=== PATIENT | female | born 1975 | race Two or more races ===

== ENCOUNTER 2024-08-07 14:18 | Inpatient (IN) | payer MEDICAID ==
[~2024-08-07] VITALS: Ht 160 cm; Wt 71.6 kg
--- NOTE | 2024-08-07 14:40 | ED.PDOC ---
History of Present Illness HPI Comments 48-year-old female presents with a chief complaint of facial swelling x 4 days. Patient states that she has been having right submandibular swelling and pain for the past x 4 days. Patient reports that this has happened before in the past, but states that "It never got this bad before". Patient reports that the swelling location is hard to the touch, and is localized to the submandibular right side. Patient denies any injuries or trauma prior to onset of symptoms. No other symptoms or modifying factors present at this time. Time Seen by MD: 14:29 Reviewed Notes: Medications, Allergies Information Source: Patient Mode of Arrival: Ambulatory Severity: Moderate Timing: Days Duration: Since onset Prehospital treatment: None Past Medical History PAST MEDICAL HISTORY: Denies Surgical History: Denies all surgeries DIRECTOR OF IN SERVICE EDUCATION History: Denies all DIRECTOR OF IN SERVICE EDUCATION Hx Family History Family History: Reviewed,noncontributory to illness Social History Smoker: Non-Smoker Alcohol: Denies ETOH Use Drugs: Denies Drug Use Lives In: Home Constitutional: denies: chills, diaphoresis, fatigue, fever, malaise, sweats, weakness, others EENTM: reports: mouth pain, mouth swelling; denies: blurred vision, double vision, ear bleeding, ear discharge, ear drainage, ear pain, ear ringing, eye pain, eye redness, hearing loss, nasal discharge, nose bleeding, nose congestion, nose pain, photophobia, tearing, throat pain, throat swelling, voice changes, others Respiratory: denies: cough, hemoptysis, orthopnea, SOB at rest, shortness of breath, SOB with excertion, stridor, wheezing, others Cardiovascular: denies: chest pain, dizzy spells, diaphoresis, Dyspnea on exertion, edema, irregular heart beat, left arm pain, lightheadedness, palpi tations, PND, syncope, others Gastrointestinal: denies: abdomen distended, abdominal pain, blood streaked bowels, constipated, diarrhea, dysphagia, difficulty swallowing, hematemesis, melena, nausea, poor appetite, poor fluid intake, rectal bleeding, rectal pain, vomiting, others Genitourinary: denies: abnormal vagina bleeding, burning, dyspareunia, dysuria, flank pain, frequency, hematuria, incontinence, pain, , vagina discharge, urgency, others Neurological: denies: dizziness, fainting, headache, left sided numbness, left sided weakness, numbness, paresthesia, pre-existing deficit, right sided numbness, right sided weakness, seizure, speech problems, tingling, tremors, weakness, others Musculoskeletal: denies: back pain, gout, joint pain, joint swelling, muscle pain, muscle stiffness, neck pain, others Integumetry: denies: bruises, change in color, change in hair/nails, dryness, laceration, lesions, lumps, rash, wounds, others Allergic/Immunocompromised: denies: Difficulty Healing, Frequent Infections, Hives, Itching, others Hematologic/Lymphatic: denies: anemia, blood clots, easy bleeding, easy bru ising, swollen glands, others Endocrine: denies: excessive hunger, excessive sweating, excessive thirst, e xcessive urination, flushing, intolerance to cold, intolerance to heat, unexplained weight gain, unexplained weight loss, others Psychiatric: denies: anxiety, bipolar disorder, depression, hopeless, panic disorder, schizophrenia, sleepless, suicidal, others All Other Systems: Reviewed and Negative Physical Exam General Appearance: No Apparent Distress, Normal HEENT: Normal ENT Inspection, Pharynx Normal, TMs Normal, Other (Right Submandibular Swelling, Right Molar Cavitation, No Tongue Swelling) Neck: Full Range of Motion, Non-Tender, Normal, Normal Inspection Respiratory: Chest Non-Tender, Lungs Clear, No Accessory Muscle Use, No Respiratory Distress, Normal Breath Sounds Cardiovascular: No Edema, No JVD, No Murmur, No Gallop, Normal Peripheral Pulses, Regular Rate/Rhythm Breast Exam: Deferred Gastrointestinal: No Organomegaly, Non Tender, No Pulsatile Mass, Normal Bowel Sounds, Soft Genitalia: Deferred Pelvic: Deferred Rectal: Deferred Extremities: No calf tenderness, Normal capillary refill, Normal inspection, Normal range of motion, Non-tender, No pedal edema Musculoskeletal : Apperance: Normal Neurologic: Alert, printing equipment mechanic II-XII nml as Tested, No Motor Deficits, Normal Affect, Normal Mood, No Sensory Deficits Cerebellar Function: Normal Reflexes: Normal Skin: Dry, Normal Color, Warm Lymphatic: No Adenopathy Was a procedure done? Was a procedure done?: No Differential Dx Considerations may include: Due to concerns for kolton's angina, facial abscess, oral abscess, malignancy, adenopathy, and patients condition deteriorating, the care required my highest level of attention and readiness to intervene. I assessed the patient, reviewed the medical records, ordered the appropriate tests and treatments, then reassessed for results and responsiveness. I communicated with medical personnel and consultants and formulated a plan of care. Total critical care time excludes any procedures X-Ray, Labs, Meds, VS Vital Signs Date Time Temp Pulse Resp B/P (MAP) Pulse Ox O2 Delivery O2 Flow Rate FiO2 08/07/24 15:43 98.5 75 18 138/80 (99) 99 98.5 08/07/24 15:43 75 18 99 Room Air 08/07/24 14:37 98.1 90 18 152/96 (114) 99 Lab Test 08/07/24 15:00 Range/Units White Blood Count 11.0 H 4.4-10.8 10^3/uL Red Blood Count 5.32 H 4.0-5.20 10^6/uL Hemoglobin 13.4 12.2-16.2 g/dL Hematocrit 41.2 36.0-46.0 % Mean Corpuscular Volume 77.5 L 80.0-100.0 fL Mean Corpuscular Hemoglobin 25.2 L 28.0-32.0 pg Mean Corpuscular Hemoglobin Concent 32.5 32.0-36.0 g/dL Red Cell Distribution Width 15.3 H 11.8-14.3 % Platelet Count 323 140-450 10^3/uL Mean Platelet Volume 8.1 6.9-10.8 fL Neutrophils (%) (Auto) 73.5 37.0-80.0 % Lymphocytes (%) (Auto) 15.7 10.0-50.0 % Monocytes (%) (Auto) 9.0 0.0-12.0 % Eosinophils (%) (Auto) 1.3 0.0-7.0 % Basophils (%) (Auto) 0.5 0.0-2.0 % Neutrophils # (Auto) 8.1 1.6-8.6 10 ^3/uL Lymphocytes # (Auto) 1.7 0.4-5.4 10 ^3/uL Monocytes # (Auto) 1.0 0-1.3 10 ^3/uL Eosinophils # (Auto) 0.1 0-0.8 10 ^3/uL Basophils # (Auto) 0 0-0.2 10 ^3/uL Nucleated Red Blood Cells 0.1 % Sodium Level Pending Potassium Level Pending Chloride Level Pending Carbon Dioxide Level Pending Anion Gap Pending Blood Urea Nitrogen Pending Creatinine Pending Glomerular Filtration Rate Calc Pending BUN/Creatinine Ratio Pending Serum Glucose Pending Calcium Level Pending Current Medications Medications (Trade) Dose Ordered Sig/Ana Route Start Time Stop Time Status Last Admin Ceftriaxone Sodium 50 ml @ 100 mls/hr ONCE ONCE IV 08/07/24 14:45 08/07/24 15:14 DC 08/07/24 14:45 Time of 1ST Reevaluation: 14:59 Reevaluation 1ST: Unchanged Time of 2ND Reevaluation: 16:08 Reevaluation 2ND: Improved Patient Education/Counseling: Diagnosis, Treatment, Prognosis, Need For Follow Up Family Education/Counseling: Diagnosis, Treatment, Prognosis, Need For Follow Up Comments The following tests were ordered, and results were reviewed by me: CBC, BMP, Mandible 4V X-Ray I reviewed and agreed with the following test results read by other providers: Mandible 4V X-Ray Additional Information pt has reactive submandibular adenopathy, but no abscess. she does not have trismus, foul breath, evidence of kolton's angina. she has cellulitis, but not an abscess. however, due to the area of swelling, she will be admitted for iv antibiotic Departure 1 Departure Time of Disposition: 16:11 Impression: Primary Impression: Facial cellulitis Additional Impressions: Dental infection Submandibular lymphadenopathy Disposition: ADMITTED INPATIENT Admit to: Med Surg Condition: Stable Discharged With: Self Critical Care Note Critical Care Time?: Yes (55 min-critical care time only) Critical care comment: kolton's angina, facial abscess, oral abscess, malignancy, adenopathy Stability Stability form required: No I personally scribed for GIOVANNA FONATINE MD ([email or web address]) on 08/07/24 at 14:40. Electronically submitted by Paulino Calle ([email or web address]). I personally scribed for GIOVANNA FONTAINE MD ([email or web address]) on 08/07/24 at 14:52. Electronically submitted by Paulino Calle ([email or web address]). GIOVANNA FONTAINE MD Aug 07, 2024 14:40
[2024-08-07] MEDS: cefTRIAXone 1GM/50ML D5W 50 ML IV ONE (14:45)
--- NOTE | 2024-08-07 15:34 | DVH ---
EXAM: XY MANDIBLE COMPLETE MIN 4V CLINICAL HISTORY: right jaw swelling COMPARISON: None TECHNIQUE: XY MANDIBLE COMPLETE MIN 4V Findings/Impression: 4 views of the mandible. There is no evidence of an acute fracture, dislocation, blastic, or lytic lesions. No radiopaque foreign bodies. The paranasal sinuses, mastoid air cells, and sella turcica are within normal limits. No superficial soft tissue abnormalities.
[2024-08-07 15:42] LABS: Basophils # (auto) 0 10 ^3/uL (0-0.2); Basophils % (auto) 0.5 % (0.0-2.0); Eosinophils # (auto) 0.1 10 ^3/uL (0-0.8); Eosinophils % (auto) 1.3 % (0.0-7.0); Hematocrit 41.2 % (36.0-46.0); Hemoglobin 13.4 g/dL (12.2-16.2); Lymphocytes # (auto) 1.7 10 ^3/uL (0.4-5.4); Lymphocytes % (auto) 15.7 % (10.0-50.0); Mean Corpuscular Hemoglobin 25.2 pg (28.0-32.0); Mean Corpuscular Hgb Conc. 32.5 g/dL (32.0-36.0); Mean Corpuscular Volume 77.5 fL (80.0-100.0); Neutrophils # (auto) 8.1 10 ^3/uL (1.6-8.6); Neutrophils % (auto) 73.5 % (37.0-80.0); Nucleated Red Blood Cells % 0.1 %; Platelet Count (auto) 323 10^3/uL (140-450); Red Blood Cells 5.32 10^6/uL (4.0-5.20); Red Cell Distribution Width 15.3 % (11.8-14.3)
[2024-08-07 16:02] LABS: Chloride 103 mmol/L (98-107); Potassium 3.9 mmol/L (3.5-5.1)
[2024-08-07 16:03] LABS: Anion Gap 7 (5-15); Calcium 9.9 mg/dL (8.7-10.4); Carbon Dioxide 24 mmol/L (20-31)
[2024-08-07 16:08] LABS: BUN/Creatinine Ratio 13.9 (10.0-20.0); Blood Urea Nitrogen 10 mg/dL (9-23); Glucose 95 mg/dL (74-106)
[2024-08-07 16:10] LABS: Sodium 134 mmol/L (136-145)
[2024-08-07] MEDS: ONDANSETRON HCL 4 MG/2 ML VIAL IV ONE (21:18)
[2024-08-07] MEDS: MORPHINE SULFATE INJ 2 MG/ml SYRG IV ONE (21:21)
--- NOTE | 2024-08-07 22:04 | DVHHPRES ---
History of Present Illness Resident Creating Document: DINH JONES RESIDENT History of Present Illness Patient is a 48-year-old female with no significant past medical history who came in due to right jaw pain. According to the patient, yesterday on 08/06/2024 she woke up with right submandibular swelling and pain that progressi vely got worse which prompted the visit to urgent care from where she was subsequently sent to the ED. patient describes the pain as constant, 9/10 in intensity. Patient notes that she had similar symptoms 2 months ago when she came to the ER, was given antibiotics and symptoms subsided. On review of system, patient notes experiencing flu-like symptoms including rhinorrhea, sore throat and congestion. Past Medical History Denies Past Surgical History Cholecystectomy, right elbow surgery Smoke: No ALCOHOL: rare Drugs: Marijuana Lives: with Family Review of Systems Constitutional: No: Fever, Chills, Sweats, Weakness, Malaise, Other Eyes: No: Pain, Vision change, Conjunctivae inflammation, Eyelid inflammation, Other, Redness ENT: Nose discharge, Nose congestion, Throat pain; No: Ear pain, Ear discharge, Nose pain, Mouth pain, Mouth swelling, Throat swelling, Other Respiratory: No: Cough, Dry, Shortness of breath, SOB with excertion, Wheezing, Hemoptysis, Pleuritic Pain, Sputum, Wheezing, Other Cardiovascular: No: Chest Pain, Palpitations, Orthopnea, Paroxysmal Noc. Dyspnea, Edema, Lt Headedness, Other Gastrointestinal: No: Nausea, Vomiting, Abdominal Pain, Diarrhea, Constipation, Melena, Hematochezia, Other Genitourinary: No Dysuria, No Frequency, No Incontinence, No Hematuria, No Retention, No Other Musculoskeletal: No: other, neck pain, shoulder pain, arm pain, back pain, hand pain, leg pain, foot pain Skin: No: Rash, Lesions, Jaundice, Bruising, Other Neurological: No: Weakness, Numbness, Incoordination, Change in speech, Confusion, Seizures, Other Allergies: Coded Allergies: NO KNOWN ALLERGIES (Unverified , 08/07/24) Exam Vital Signs Vital Signs Date Time Temp Pulse Resp B/P (MAP) Pulse Ox O2 Delivery O2 Flow Rate FiO2 08/07/24 21:37 88 18 138/82 08/07/24 15:43 98.5 99 98.5 08/07/24 15:43 Room Air General Appearance: Alert, Oriented X3, Cooperative, mild distress HEENT: Atraumatic, PERRLA, EOMI, Other (Patient noted to have right submandibular swelling, hard to touch and tender to palpation) Respiratory: Clear to auscultation, Normal air movement Cardiovascular: Regular rate, Normal S1, Normal S2, No murmurs Abdominal: Normal bowel sounds, Soft, No tenderness Extremities: No clubbing, No cyanosis, No edema, Normal pulses Skin: No rashes, No breakdown, No significant lesion Neuro: Normal speech, Strength at 5/5 X4 ext, Sensation intact Psych/Mental Status: Mental status NL, Mood NL Labs/Xrays Labs Test 08/07/24 15:00 Range/Units White Blood Count 11.0 H 4.4-10.8 10^3/uL Red Blood Count 5.32 H 4.0-5.20 10^6/uL Hemoglobin 13.4 12.2-16.2 g/dL Hematocrit 41.2 36.0-46.0 % Mean Corpuscular Volume 77.5 L 80.0-100.0 fL Mean Corpuscular Hemoglobin 25.2 L 28.0-32.0 pg Mean Corpuscular Hemoglobin Concent 32.5 32.0-36.0 g/dL Red Cell Distribution Width 15.3 H 11.8-14.3 % Platelet Count 323 140-450 10^3/uL Mean Platelet Volume 8.1 6.9-10.8 fL Neutrophils (%) (Auto) 73.5 37.0-80.0 % Lymphocytes (%) (Auto) 15.7 10.0-50.0 % Monocytes (%) (Auto) 9.0 0.0-12.0 % Eosinophils (%) (Auto) 1.3 0.0-7.0 % Basophils (%) (Auto) 0.5 0.0-2.0 % Neutrophils # (Auto) 8.1 1.6-8.6 10 ^3/uL Lymphocytes # (Auto) 1.7 0.4-5.4 10 ^3/uL Monocytes # (Auto) 1.0 0-1.3 10 ^3/uL Eosinophils # (Auto) 0.1 0-0.8 10 ^3/uL Basophils # (Auto) 0 0-0.2 10 ^3/uL Nucleated Red Blood Cells 0.1 % Sodium Level 134 L 136-145 mmol/L Potassium Level 3.9 3.5-5.1 mmol/L Chloride Level 103 98-107 mmol/L Carbon Dioxide Level 24 20-31 mmol/L Anion Gap 7 5-15 Blood Urea Nitrogen 10 9-23 mg/dL Creatinine 0.72 0.550-1.02 mg/dL Glomerular Filtration Rate Calc 102 >90 mL/min BUN/Creatinine Ratio 13.9 10.0-20.0 Serum Glucose 95 74-106 mg/dL Calcium Level 9.9 8.7-10.4 mg/dL Assessment/Plan Assessment/Plan Acute R submandibular infection - mandibular x-ray: There is no evidence of an acute fracture, dislocation, blastic, or lytic lesions. No radiopaque foreign bodies. The paranasal sinuses, mastoid air cells, and bebeto la turcica are within normal limits. No superficial soft tissue abnormalities. - ordered COVID and influenza testing - ordered HIV testing - IV ceftriaxone, IV metronidazole - IV morphine 2 mg once Goals of care: Full code, discussed for >16 minutes on 08/07/2024 Plan discussed with patient Plan discussed with Dr. Benoit Plan discussed with: Patient, Other (RN) Date of Service: Aug 07, 2024 Billing Provider: JANEY BENOIT MD Common Visit Codes: [id number] INP/OBS CARE (HIGH) DINH JONES RESIDENT Aug 07, 2024 22:04 JANEY BENOIT MD Aug 08, 2024 09:01
[2024-08-07] MEDS ORDERED: cefTRIAXone 1GM/50ML D5W 50 ML IV ONE (22:15)
[2024-08-08] VITALS (8 sets, daily range): BP systolic 120–139; BP diastolic 66–79; PULSE 59–68; RESP 16–19; TEMP 97.9–98.6; O2SAT 95–100
[2024-08-08] MEDS: metroNIDAZOLE 500MG/100ML 100 ML IV SCH (00:16)
[2024-08-08] MEDS: MORPHINE SULFATE INJ 2 MG/ml SYRG IV ONE (02:23)
[2024-08-08 04:20] LABS: COVID19 ANTIGEN SOFIA FIA NEGATIVE (NEGATIVE); Rapid Influenza A Negative (Negative); Rapid Influenza B Negative (Negative)
[2024-08-08] MEDS: ACETAMINOPHEN 325 MG TAB PO ONE (08:32)
[2024-08-08] MEDS: cefTRIAXone 1GM/50ML D5W 50 ML IV SCH (08:32)
--- NOTE | 2024-08-08 09:41 | DVH ---
Exam: US SOFT TISSUE NECK Date: 08/08/2024 08:39 AM Clinical History: pain Comparison: None Findings: Targeted sonographic evaluation of the soft tissues of the right neck was obtained utilizing graysca le and color Doppler imaging. Possible fluid collection in right submandibular measuring 2cm. IMPRESSION: Possible fluid collection in right submandibular measuring 2cm. END IMPRESSION:
[2024-08-08] MEDS ORDERED: IOHEXOL 300 MG/ML 100ML BOTTLE IJ ONE (10:56)
--- NOTE | 2024-08-08 11:38 | DVH ---
CT NECK WITH CONTRAST Clinical History: submand abscess Comparison: None Technique: Multiple contiguous CT images of the neck were obtained with intravenous contrast. These images were reformatted degenerate coronal and sagittal reconstructions. 100 cc is omnipaque 300 cont rast was injected intravenously. Radiation Dose Information: CT Dose: CTDI volume is 13.43 mGy. Dose-length product is 320.19 mGy*cm Findings: There is an approximately 1.4 x 1.3 x 0.8 cm (AP by transverse by cc ) fluid collection with thickene d enhancing daugherty along the inferior margins of the body of the right mandible compatible with an abs cess. There are inflammatory changes in the right cheek/upper neck with moderate fat stranding and mi ld skin thickening. There is also asymmetric thickening of the right platysma. There is an enlarged right submandibular neck lymph node measuring 11 mm in the short axis. Additiona l bilateral subcentimeter cervical lymph nodes are seen. The bilateral submandibular and parotid glan ds appear within normal limits. There is no evidence of a soft tissue neck mass or pathologically enlarged cervical lymph nodes. The re are scattered subcentimeter lymph nodes which are not pathologic by size criteria. The salivary an d thyroid glands appear within normal limits. There is a small right thyroid lobe nodule. The left t hyroid lobe appears within normal limits. The aerodigestive tract appears unremarkable without a discrete mucosal or submucosal lesion. The nate ttis appears fairly symmetric. The visualized intracranial and intraorbital contents appear within normal limits. The lung apices ar e clear. The visualized paranasal sinuses and mastoid air cells are also clear. The osseous structures appear within normal limits. Impression: 1. There is a 1.4 x 1.3 cm abscess along the inferior margins of the body of the right mandible. Ther e are inflammatory changes in the right cheek/ upper neck moderate fat stranding and mild skin thicke irasema. 2. Enlarged right submandibular neck lymph node measuring 11 mm in the short axis likely a reactive l ymph node. HS:Y
[2024-08-08] MEDS: KETOROLAC TROMETH 30 MG/ML 1ML VIAL IV PRN (12:38)
[2024-08-08] MEDS: CLINDAMYCIN 300MG IV 50 ML IV SCH (14:18)
--- NOTE | 2024-08-08 15:13 | DVHPNRES ---
Progress Note Date Seen: Aug 08, 2024 Resident Creating Document: RACHID HILL RESIDENT Has the PT tested + for MRSA If YES, has PT been informed?: No Medical Necessity Reason Pt with a Central, PICC or Fol: No Subjective Review of Systems Patient is a 48-year-old female with no significant past medical history who came in due to right jaw pain. According to the patient, yesterday on 08/06/2024 she woke up with right submandibular swelling and pain that progressively got worse which prompted the visit to urgent care from where she was subsequently sent to the ED. patient describes the pain as constant, 9/10 in intensity. Patient notes that she had similar symptoms 2 months ago when she came to the ER, was given antibiotics and symptoms subsided. On review of system, patient notes experiencing flu-like symptoms including rhinorrhea, sore throat and congestion. Past Medical History Denies Past Surgical History Cholecystectomy, right elbow surgery Smoke: No ALCOHOL: rare Drugs: Marijuana Lives: with Family Objective vital signs Vital Sign Date Time Temp Pulse Resp B/P (MAP) Pulse Ox O2 Delivery O2 Flow Rate FiO2 08/08/24 13:00 98.4 65 16 136/74 (94) 97 98.4 08/08/24 06:01 Room Air* 0 21 Total Intake and Output 08/07/24 08/07/24 08/08/24 15:00 23:00 07:00 Intake Total 100 ml Balance 100 ml medications Current Medications Medications Dose Ordered Sig/Ana Route Start Time Stop Time Status Last Admin Dose Admin Ceftriaxone Sodium 50 ml @ 100 mls/hr DAILY@09 IV 08/08/24 09:00 08/08/24 08:32 100 MLS/HR Clindamycin Phosphate 50 ml @ 50 mls/hr Q8HR IV 08/08/24 14:00 08/08/24 14:18 50 MLS/HR Ketorolac Tromethamine 30 mg Q6HPRN PRN IV 08/08/24 09:00 08/13/24 08:59 08/08/24 12:38 30 MG Examination General Appearance: Alert, Oriented X3, Cooperative, mild distress HEENT: Atraumatic, PERRLA, EOMI, Other (Patient noted to have right submandibular swelling, hard to touch and tender to palpation) Respiratory: Clear to auscultation, Normal air movement Cardiovascular: Regular rate, Normal S1, Normal S2, No murmurs Abdominal: Normal bowel sounds, Soft, No tenderness Extremities: No clubbing, No cyanosis, No edema, Normal pulses Skin: No rashes, No breakdown, No significant lesion Neuro: Normal speech, Strength at 5/5 X4 ext, Sensation intact Psych/Mental Status: Mental status NL, Mood NL laboratory and microbiology Laboratory Tests 08/07/24 15:00 Test 08/07/24 15:00 Range/Units Serum Glucose 95 74-106 mg/dL Problem List/Assessment/Plan Problem List/Assessment/Plan #1.4 x 1.3 cm abscess along the inferior margins of the body of the right mandible ct scan: submandibular abscess - mandibular x-ray: There is no evidence of an acute fracture, dislocation, blastic, or lytic lesions. No radiopaque foreign bodies. The paranasal sinuses, mastoid air cells, and sella turcica are within normal limits. No superficial soft tissue abnormalities. COVID and influenza neg HIV testing neg - IV ceftriaxone, IV metronidazole - IV morphine 2 mg once Conservative management for now Goals of care: Full code, discussed for >16 minutes on 08/07/2024 Plan discussed with patient Plan discussed with Dr. Dick Plan discussed with: Patient, Other (rn) My Orders My Orders Orders - RACHID HILL Procedure Category Date Status Time Soft Tissue Neck US 08/08/24 Resulted 08:12 Ketorolac Injection PHA 08/08/24 In Process (Toradol Injection) 09:[address] 08/08/24 Resulted Soft 10:26 Date of Service: Aug 08, 2024 Billing Provider: SOSA DICK MD Common Visit Codes: [id number] INP/OBS CARE(HIGH) RACHID HILL Aug 08, 2024 15:13 SOSA DICK MD Aug 08, 2024 15:42
[2024-08-09] VITALS (7 sets, daily range): BP systolic 119–139; BP diastolic 70–77; PULSE 59–72; RESP 16–18; TEMP 97.5–99.2; O2SAT 97–100
[2024-08-09 07:28] LABS: Alanine Aminotransferase 9 U/L (7-40); Albumin 4.3 g/dL (3.2-4.8); Alkaline Phosphatase 72 U/L (46-116); Anion Gap 8 (5-15); Aspartate Aminotransferase 15 U/L (13-40); BUN/Creatinine Ratio 20.9 (10.0-20.0); Blood Urea Nitrogen 14 mg/dL (9-23); Calcium 9.7 mg/dL (8.7-10.4); Carbon Dioxide 25 mmol/L (20-31); Chloride 103 mmol/L (98-107); Glucose 81 mg/dL (74-106); Sodium 136 mmol/L (136-145); Total Protein 7.4 g/dL (5.7-8.2)
[2024-08-09 07:34] LABS: Basophils # (auto) 0 10 ^3/uL (0-0.2); Basophils % (auto) 0.2 % (0.0-2.0); Eosinophils # (auto) 0.2 10 ^3/uL (0-0.8)
[2024-08-09 07:36] LABS: Eosinophils % (auto) 2.8 % (0.0-7.0); Hematocrit 37.1 % (36.0-46.0); Hemoglobin 12.3 g/dL (12.2-16.2); Lymphocytes # (auto) 1.2 10 ^3/uL (0.4-5.4); Lymphocytes % (auto) 14.4 % (10.0-50.0); Mean Corpuscular Hemoglobin 25.4 pg (28.0-32.0); Mean Corpuscular Hgb Conc. 33.3 g/dL (32.0-36.0); Mean Corpuscular Volume 76.4 fL (80.0-100.0); Monocytes % (auto) 11.9 % (0.0-12.0); Neutrophils # (auto) 5.8 10 ^3/uL (1.6-8.6); Neutrophils % (auto) 70.7 % (37.0-80.0); Nucleated Red Blood Cells % 0.2 %; Platelet Count (auto) 263 10^3/uL (140-450); Red Blood Cells 4.85 10^6/uL (4.0-5.20); White Blood Cell 8.2 10^3/uL (4.4-10.8)
--- NOTE | 2024-08-09 20:52 | DVHPN2 ---
Reviewed: Care Plan, H&P, Medications, Previous Orders, Radiology Changes from previous H/P or p: No Changes General: Per HPI Eyes: No Pain, No Vision change, No Conjunctivae inflammation, No Eyelid inflammation, No Other, No Redness ENT: No Ear pain, No Ear discharge, No Nose pain; Nose discharge, Nose congestion; No Mouth pain, No Mouth swelling; Throat pain; No Throat swelling, No Other Cardiovascular: No Chest Pain, No Palpitations, No Orthopnea, No Paroxysmal Noc. Dyspnea, No Edema, No Lt Headedness, No Other Respiratory: No Cough, No Dry, No Shortness of breath, No SOB with excertion, No Wheezing, No Hemoptysis, No Pleuritic Pain, No Sputum, No Other Gastrointestinal: No Nausea, No Vomiting, No Abdominal Pain, No Diarrhea, No Constipation, No Melena, No Hematochezia, No Other Genitourinary: No Dysuria, No Frequency, No Incontinence, No Hematuria, No Retention, No Other Musculoskeletal: No other, No neck pain, No shoulder pain, No arm pain, No back pain, No hand pain, No leg pain, No foot pain Skin: No Rash, No Lesions, No Jaundice, No Bruising, No Other Objective Vitals Vital Signs Date Time Temp Pulse Resp B/P (MAP) Pulse Ox O2 Delivery O2 Flow Rate FiO2 08/09/24 17:00 98.9 59 18 135/70 (91) 100 98.9 08/09/24 08:00 Room Air* 0 21 Intake/Output Intake and Output 08/09/24 07:00 Intake Total 50 ml Balance 50 ml Intake Oral 0 ml IV Total 50 ml # Voids 7 General Appearance: Alert, Oriented X3, Cooperative Cardiovascular: Regular rate, Normal S1, Normal S2 Abdomen: Normal bowel sounds, Soft Medications Current Medications Medications Dose Ordered Sig/Ana Route Start Time Stop Time Status Last Admin Dose Admin Ceftriaxone Sodium 50 ml @ 100 mls/hr DAILY@09 IV 08/08/24 09:00 08/09/24 09:53 100 MLS/HR Clindamycin Phosphate 50 ml @ 50 mls/hr Q8HR IV 08/08/24 14:00 08/09/24 12:45 50 MLS/HR Ketorolac Tromethamine 30 mg Q6HPRN PRN IV 08/08/24 09:00 08/13/24 08:59 08/09/24 14:40 30 MG Laboratory Results Laboratory Tests 08/09/24 05:41 Chemistry Test 08/09/24 05:41 Albumin 4.3 g/dL (3.2-4.8) Calcium Level 9.7 mg/dL (8.7-10.4) Total Protein 7.4 g/dL (5.7-8.2) LFT Test 08/09/24 05:41 Alanine Aminotransferase (ALT) 9 U/L (7-40) Alkaline Phosphatase 72 U/L (46-116) Aspartate Amino Transferase (AST) 15 U/L (13-40) Total Bilirubin 1.0 mg/dL (0.2-1.0) Microbiology Microbiology Date/Time Source Procedure Growth Status 08/07/24 22:10 Blood Blood Culture - Preliminary NO GROWTH AFTER 24 HOURS OF INCUBATION. Resulted Labs and/or images reviewed: Labs reviewed by me, Image(s) reviewed by me Assessment/Plan Assessment/Plan #1.4 x 1.3 cm abscess along the inferior margins of the body of the right mandible ct scan: submandibular abscess - mandibular x-ray: There is no evidence of an acute fracture, dislocation, blastic, or lytic lesions. No radiopaque foreign bodies. The paranasal sinuses, mastoid air cells, and sella turcica are within normal limits. No superficial soft tissue abnormalities. COVID and influenza neg HIV testing neg - IV ceftriaxone, IV metronidazole - IV morphine 2 mg once Conservative management for now 08/09/2024: -discussed with pt regarding conservative management with IV Abx. Discussed with pt that she needs to see an ENT specialist started on soft diet Plan discussed with: Patient My Orders Orders - SHAW DOWNEY DO Procedure Category Date Status Time Clear Liq Diet DIET 08/09/24 Transmitted Dinner Date of Service: Aug 09, 2024 Billing Provider: SHAW DOWNEY DO Common Visit Codes: [id number] INP/OBS CARE(HIGH) SHAW DOWNEY DO Aug 09, 2024 20:52
[2024-08-09] MEDS: PIPERACILLIN-TAZOB 3.375GM 100 ML IV SCH (22:38)
[2024-08-10 08:00] VITALS: PULSE 72
[2024-08-10 09:00] VITALS: BP 119/64; PULSE 71; RESP 18; TEMP 98.1; O2SAT 97
--- NOTE | 2024-08-10 10:37 | DVHPNRES ---
Progress Note Date Seen: Aug 10, 2024 Resident Creating Document: RACHID HILL RESIDENT Has the PT tested + for MRSA If YES, has PT been informed?: No Medical Necessity Reason Pt with a Central, PICC or Fol: No Subjective Review of Systems Patient is a 48-year-old female with no significant past medical history who came in due to right jaw pain. According to the patient, yesterday on 08/06/2024 she woke up with right submandibular swelling and pain that progressively got worse which prompted the visit to urgent care from where she was subsequently sent to the ED. patient describes the pain as constant, 9/10 in intensity. Patient notes that she had similar symptoms 2 months ago when she came to the ER, was given antibiotics and symptoms subsided. On review of system, patient notes experiencing flu-like symptoms including rhinorrhea, sore throat and congestion. Past Medical History Denies Past Surgical History Cholecystectomy, right elbow surgery Smoke: No ALCOHOL: rare Drugs: Marijuana Lives: with Family Objective vital signs Vital Sign Date Time Temp Pulse Resp B/P (MAP) Pulse Ox O2 Delivery O2 Flow Rate FiO2 08/10/24 09:00 98.1 71 18 119/64 (82) 97 98.1 08/09/24 20:00 Room Air* 0 21 Total Intake and Output 08/09/24 08/09/24 08/10/24 15:00 23:00 07:00 Intake Total 1010 ml 1750 ml Balance 1010 ml 1750 ml medications Current Medications Medications Dose Ordered Sig/Ana Route Start Time Stop Time Status Last Admin Dose Admin Clindamycin Phosphate 50 ml @ 50 mls/hr Q8HR IV 08/08/24 14:00 08/10/24 05:09 50 MLS/HR Ketorolac Tromethamine 30 mg Q6HPRN PRN IV 08/08/24 09:00 08/13/24 08:59 08/10/24 10:15 30 MG Piperacillin Sod/ Tazobactam Sod 100 ml @ 25 mls/hr Q8HR IV 08/09/24 22:00 08/10/24 06:24 25 MLS/HR Examination General Appearance: Alert, Oriented X3, Cooperative, mild distress HEENT: Atraumatic, PERRLA, EOMI, Other (Patient noted to have right submandibular swelling, hard to touch and tender to palpation) Respiratory: Clear to auscultation, Normal air movement Cardiovascular: Regular rate, Normal S1, Normal S2, No murmurs Abdominal: Normal bowel sounds, Soft, No tenderness Extremities: No clubbing, No cyanosis, No edema, Normal pulses Skin: No rashes, No breakdown, No significant lesion Neuro: Normal speech, Strength at 5/5 X4 ext, Sensation intact Psych/Mental Status: Mental status NL, Mood NL laboratory and microbiology Laboratory Tests 08/09/24 05:41 Test 08/09/24 05:41 Range/Units Serum Glucose 81 74-106 mg/dL Microbiology Date/Time Source Procedure Growth Status 08/07/24 22:10 Blood Blood Culture - Preliminary NO GROWTH AFTER 48 HOURS OF INCUBATION. Resulted Problem List/Assessment/Plan Problem List/Assessment/Plan #1.4 x 1.3 cm abscess along the inferior margins of the body of the right mandible ct scan: submandibular abscess - mandibular x-ray: There is no evidence of an acute fracture, dislocation, blastic, or lytic lesions. No radiopaque foreign bodies. The paranasal sinuses, mastoid air cells, and sella turcica are within normal limits. No superficial soft tissue abnormalities. COVID and influenza neg HIV testing neg - IV ceftriaxone, IV clindamycin - IV morphine 2 mg once Conservative management for now: patient is advised to consult oral surgeon for drainage Goals of care: Full code, discussed for >16 minutes on 08/07/2024 Plan discussed with patient Plan discussed with Dr. Silva Plan discussed with: Patient, Other (rn) Date of Service: Aug 10, 2024 Billing Provider: GABRIELLA SILVA MD Common Visit Codes: [id number] INP/OBS CARE(HIGH) RACHID HILL RESIDENT Aug 10, 2024 10:37 GABRIELLA SILVA MD Aug 11, 2024 00:18
[2024-08-10 13:00] VITALS: BP 135/68; PULSE 67; RESP 18; TEMP 98.3; O2SAT 100
[2024-08-10 15:25] LABS: Urine Amorphous Crystal FEW /hpf (None Seen); Urine Bacteria FEW /hpf (None Seen); Urine Blood Negative /uL (Negative); Urine Clarity Turbid (Clear); Urine Color Yellow (Yellow); Urine Hyaline Cast FEW /lpf (0 - 2); Urine Protein, UAD Negative (Negative); Urine Squamous Epithelial Cell FEW /hpf (<5); Urine Urobilinogen Normal (Negative); Urine WBC 2 /hpf (0 - 5); Urine pH 5.5 (5.0-9.0)
[2024-08-10 15:32] LABS: Amphetamine Screen, Urine Neg (NEGATIVE); Barbiturate Scree,Urine Neg (NEGATIVE); Benzodiazephine Screen, Urine Neg (NEGATIVE); Cannabinoid Screen, Urine Pos (NEGATIVE); Cocaine Screen, Urine Neg (NEGATIVE); Opiate Scree,Urine Neg (NEGATIVE); Phencyclidine Screen, Urine Neg (NEGATIVE)
[2024-08-10] MEDS ORDERED: AMOX500T86 PO (16:47)
[2024-08-10] MEDS ORDERED: IBUP-1453 PO (16:47)
--- NOTE | 2024-08-10 16:59 | DVHDSRES ---
Discharge Summary Date of Admission Resident Creating Document: RACHID HILL RESIDENT Aug 07, 2024 at 22:02 Date of Discharge: Aug 10, 2024 Labs/Diagnostic Data: Laboratory Results Test 08/10/24 14:00 08/09/24 05:41 08/08/24 03:26 08/07/24 22:10 Urine Color Yellow (Yellow) Urine Clarity Turbid (Clear) Urine pH 5.5 (5.0-9.0) Urine Specific [place] 1.030 (1.001-1.035) Urine Protein Negative (Negative) Urine Ketones 2+ (Negative) Urine Blood Negative /uL (Negative) Urine Nitrite Negative (Negative) Urine Bilirubin Negative (Negative) Urine Urobilinogen Normal mg/dL (Negative) Urine Leukocyte Esterase Negative /uL (Negative) Urine RBC 2 /hpf (0 - 4) Urine WBC 2 /hpf (0 - 5) Urine Squamous Epithelial Cells Few /hpf (<5) Urine Amorphous Crystals Few /hpf (None Seen) Urine Bacteria Few /hpf (None Seen) Urine Hyaline Casts Few /lpf (0 - 2) Urine Glucose Normal mg/dL (Normal) Urine Opiates Screen Neg (NEGATIVE) Urine Fentanyl Screen Neg (NEGATIVE) Urine Barbiturates Screen Neg (NEGATIVE) Urine Phencyclidine Screen Neg (NEGATIVE) Urine Amphetamines Screen Neg (NEGATIVE) Urine Benzodiazepines Screen Neg (NEGATIVE) Urine Cocaine Screen Neg (NEGATIVE) Urine Cannabinoids Screen Pos (NEGATIVE) White Blood Count 8.2 10^3/uL (4.4-10.8) Red Blood Count 4.85 10^6/uL (4.0-5.20) Hemoglobin 12.3 g/dL (12.2-16.2) Hematocrit 37.1 % (36.0-46.0) Mean Corpuscular Volume 76.4 fL (80.0-100.0) Mean Corpuscular Hemoglobin 25.4 pg (28.0-32.0) Mean Corpuscular Hemoglobin Concent 33.3 g/dL (32.0-36.0) Red Cell Distribution Width 15.0 % (11.8-14.3) Platelet Count 263 10^3/uL (140-450) Mean Platelet Volume 8.2 fL (6.9-10.8) Neutrophils (%) (Auto) 70.7 % (37.0-80.0) Lymphocytes (%) (Auto) 14.4 % (10.0-50.0) Monocytes (%) (Auto) 11.9 % (0.0-12.0) Eosinophils (%) (Auto) 2.8 % (0.0-7.0) Basophils (%) (Auto) 0.2 % (0.0-2.0) Neutrophils # (Auto) 5.8 10 ^3/uL (1.6-8.6) Lymphocytes # (Auto) 1.2 10 ^3/uL (0.4-5.4) Monocytes # (Auto) 1.0 10 ^3/uL (0-1.3) Eosinophils # (Auto) 0.2 10 ^3/uL (0-0.8) Basophils # (Auto) 0 10 ^3/uL (0-0.2) Nucleated Red Blood Cells 0.2 % Sodium Level 136 mmol/L (136-145) Potassium Level 4.0 mmol/L (3.5-5.1) Chloride Level 103 mmol/L (98-107) Carbon Dioxide Level 25 mmol/L (20-31) Anion Gap 8 (5-15) Blood Urea Nitrogen 14 mg/dL (9-23) Creatinine 0.67 mg/dL (0.550-1.02) Glomerular Filtration Rate Calc 107 mL/min (>90) BUN/Creatinine Ratio 20.9 (10.0-20.0) Serum Glucose 81 mg/dL (74-106) Calcium Level 9.7 mg/dL (8.7-10.4) Total Bilirubin 1.0 mg/dL (0.2-1.0) Aspartate Amino Transferase (AST) 15 U/L (13-40) Alanine Aminotransferase (ALT) 9 U/L (7-40) Alkaline Phosphatase 72 U/L (46-116) Total Protein 7.4 g/dL (5.7-8.2) Albumin 4.3 g/dL (3.2-4.8) Influenza Type A Antigen Negative (Negative) Influenza Type B Antigen Negative (Negative) SARS-CoV-2 Antigen (Rapid) Negative (NEGATIVE) HIV (1&2) Antibody Negative (Negative) Other Laboratory Tests 08/09/24 05:41 Brief Hx & Hospital Course: A 48-year-old female with no significant past medical history presented with a right submandibular abscess causing swelling and severe pain (9/10). CT imaging revealed a 1.4 x 1.3 x 0.8 cm fluid collection along the inferior margins of the right mandible. The patient was treated with IV antibiotics (ceftriaxone and clindamycin) and IV morphine for pain control. Conservative management was pursued, and the patient was stable at discharge. The patient is advised to follow up with a dentist or oral-maxillofacial surgeon for definitive management, including potential abscess drainage. Discharge instructions include a prescription for Augmentin (12 hours for 10 days) and NSAIDs. Follow up with her primary care provider in 7 days. General Appearance: Alert, Oriented X3, Cooperative, mild distress HEENT: Atraumatic, PERRLA, EOMI, Other (Patient noted to have right submandibular swelling, hard to touch and tender to palpation) Respiratory: Clear to auscultation, Normal air movement Cardiovascular: Regular rate, Normal S1, Normal S2, No murmurs Abdominal: Normal bowel sounds, Soft, No tenderness Extremities: No clubbing, No cyanosis, No edema, Normal pulses Skin: No rashes, No breakdown, No significant lesion Neuro: Normal speech, Strength at 5/5 X4 ext, Sensation intact Psych/Mental Status: Mental status NL, Mood NL Case discussed with Dr Hodgson Time spent on care 23 min Operations or Procedures CT NECK WITH CONTRAST Clinical History: submand abscess Comparison: None Technique: Multiple contiguous CT images of the neck were obtained with intravenous contrast. These images were reformatted degenerate coronal and sagittal reconstructions. 100 cc is omnipaque 300 contrast was injected intravenously. Radiation Dose Information: CT Dose: CTDI volume is 13.43 mGy. Dose-length product is 320.19 mGy*cm Findings: There is an approximately 1.4 x 1.3 x 0.8 cm (AP by transverse by cc ) fluid collection with thickened enhancing daugherty along the inferior margins of the body of the right mandible compatible with an abscess. There are inflammatory changes in the right cheek/upper neck with moderate fat stranding and mild skin thickening. There is also asymmetric thickening of the right platysma. There is an enlarged right submandibular neck lymph node measuring 11 mm in the short axis. Additional bilateral subcentimeter cervical lymph nodes are seen. The bilateral submandibular and parotid glands appear within normal limits. There is no evidence of a soft tissue neck mass or pathologically enlarged cervical lymph nodes. There are scattered subcentimeter lymph nodes which are not pathologic by size criteria. The salivary and thyroid glands appear within normal limits. There is a small right thyroid lobe nodule. The left thyroid lobe appears within normal limits. The aerodigestive tract appears unremarkable without a discrete mucosal or submucosal lesion. The glottis appears fairly symmetric. The visualized intracranial and intraorbital contents appear within normal limits. The lung apices are clear. The visualized paranasal sinuses and mastoid air cells are also clear. The osseous structures appear within normal limits. Impression: 1. There is a 1.4 x 1.3 cm abscess along the inferior margins of the body of the right mandible. There are inflammatory changes in the right cheek/ upper neck moderate fat stranding and mild skin thickening. 2. Enlarged right submandibular neck lymph node measuring 11 mm in the short axis likely a reactive lymph node. HS:Y Condition at Discharge: Stable Final Diagnosis/Problems List #1.4 x 1.3 cm abscess along the inferior margins of the body of the right mandible Discharge Disposition: Home Discharge Instruct/Medications Diet: Consistent carbohydrate Activity: Light activity Follow Up/Referral: pcp in 7 days Medications: AB for 10 days Discharge Statement: "Patient was advised to return to the ER or call 911 if any headaches, dizziness, shortness of breath, chest pain, abdominal pain, bleeding, fevers, or worsening of medical condition. Patient was counseled about treatment plan, medications, possible side effects, patientverbalized understanding. All questions were answered to the best of my ability. This discharge took greater then 30 minutes in planning, reviewing documentation, counseling the patient, and discussing with other team members." ASSESSMENT ASSESSMENT Assessment submandibular abscess Date of Service: Aug 10, 2024 Billing Provider: GABRIELLA HODGSON MD Common Visit Codes: [id number]-[id number] DISCH DAY >30min RACHID HILL RESIDENT Aug 10, 2024 16:59 GABRIELLA HODGSON MD Aug 11, 2024 00:21
[2024-08-10 17:00] VITALS: BP 141/77; PULSE 69; RESP 17; TEMP 97.5; O2SAT 99
[2024-08-10 19:21] VITALS: BP 141/77; PULSE 69; RESP 17; TEMP 97.5; O2SAT 99
== END 2024-08-10 20:39 | disposition home or self-care (01) | DRG 115 ==
LOC: ER 14:18 → OVERFLOW 22:02 → CENTRAL 08-08 05:45
PROVIDERS: ADMIT Internal Medicine; ATTEND Internal Medicine
DX: K12.2 Cellulitis and abscess of mouth (principal); K04.7 Periapical abscess without sinus; Z20.822 Contact with and (suspected) exposure to COVID-19; R59.1 Generalized enlarged lymph nodes; Z79.899 Other long term (current) drug therapy
CPT/HCPCS: 36415; 70110; 70491; 76536; 80048; 80053; 80307; 81001; 85025; 86703; 87040; 87081; 87426; 87804; 99291; G0378; J1885; J2405; J2543; J3490